=== PATIENT | female | born 1930 | race Caucasian/White ===

== ENCOUNTER 2017-01-26 13:04 | Inpatient (IN) | payer MEDICARE, MEDICAID ==
[~2017-01-26] VITALS: Ht 162.6 cm; Wt 85.7 kg
[~2017-01-26 13:04] MED LIST: ALEN70TA45 PO; ASPI81TA2 PO; CARB-93 PO; DONE5TAB34 PO; ESCI10TA PO; FLUT16SP BNOSTRILS; LOSA1TAB36 PO; LOSA50TA21 PO; MECL-102 PO; MELO-270 PO; MEMA5TAB PO; METF500T7 PO; OLOP2.5D EACHEYE; OMEP20CA10 PO; SAXA5TAB PO; SIMV20TA6 PO
[2017-01-26 13:27] LABS: BASOPHILS # (AUTO) 0.1 /CMM (0.0-0.2); BASOPHILS % (AUTO) 2.2 % (0.0-2.0); DIFF TOTAL % 100 %; EOSINOPHILS # (AUTO) 0.1 /CMM (0.0-0.7); EOSINOPHILS % (AUTO) 1.5 % (0.0-6.0); HEMATOCRIT 39 % (33-45); HEMOGLOBIN 13.1 g/dL (11.5-14.8); LYMPHOCYTES # (AUTO) 1.7 /CMM (0.8-4.8); LYMPHOCYTES % (AUTO) 28.8 % (20.0-44.0); MEAN CORPUSCULAR HEMOGLOBIN 27 PG (26.0-33.0); MEAN CORPUSCULAR HGB CONC 33 g/dl (31.0-36.0); MEAN CORPUSCULAR VOLUME 82 fL (82-100); MONOCYTES # (AUTO) 0.3 /CMM (0.1-1.30); NEUTROPHILS # (AUTO) 3.6 /CMM (1.8-8.9); NEUTROPHILS % (AUTO) 61.5 % (43.0-81.0); PLATELET COUNT (AUTO) 218 /CMM (150-450); WHITE BLOOD COUNT (AUTO) 5.8 K/uL (4.3-11.0)
[2017-01-26 13:38] LABS: CALCIUM, SERUM 8.9 mg/dL (8.5-10.1); CREATININE 1.8 mg/dL (0.6-1.3); POTASSIUM 4.1 mmol/L (3.5-5.1)
[2017-01-26 13:44] LABS: ALBUMIN 3.5 g/dL (3.4-5.0); BILIRUBIN,DIRECT 0.1 mg/dL (0.0-0.2); BILIRUBIN,TOTAL 0.4 mg/dL (0.2-1.0); INDIRECT BILIRUBIN 0.3 mg/dL (0.0-1.1); TOTAL PROTEIN, SERUM 6.5 g/dL (6.4-8.2)
[2017-01-26 13:47] LABS: INR 1.01 (0.87-1.13); PROTHROMBIN TIME 10.6 SECS (9.5-12.7)
[2017-01-26 16:00] VITALS: BP 143/86
[2017-01-26] MEDS ORDERED: ACETAMINOPHEN 325 MG TABLET PO PRN (16:30)
[2017-01-26] MEDS ORDERED: MECLIZINE HCL 25 MG TABLET PO PRN (16:30)
[2017-01-26] MEDS ORDERED: ZOLPIDEM TARTRATE 5 MG TABLET PO PRN (16:30)
[2017-01-26] MEDS ORDERED: MAGNESIUM HYDROXIDE 30 ML UDC PO PRN (16:30)
[2017-01-26] MEDS ORDERED: DEXTROSE 50%-WATER 50 ML DISP.SYRIN IV PRN (16:30)
[2017-01-26] MEDS ORDERED: ONDANSETRON HCL/PF 4 MG/2 ML VIAL IVP PRN (16:30)
[2017-01-26] MEDS ORDERED: HYDROCODONE/APAP 5/325MG 1 EACH TABLET PO PRN (16:30)
[2017-01-26] MEDS ORDERED: Z GUARD REMEDY 2 OZ OINT TP PRN (16:30)
[2017-01-26] MEDS ORDERED: MAG HYDROX/AL HYDROX/SIMETH 30 ML UDC PO PRN (16:30)
[2017-01-26] MEDS: FLUTICASONE PROPIONATE 16 GM BOTTLE NS SCH (17:00)
[2017-01-26] MEDS ORDERED: IV SET PRIMARY PUMP SET 1 EA INFUS.SET MC ONE (17:07)
[2017-01-26] MEDS: CARBIDOPA/LEVODOPA 25/100 MG 1 UDTAB PO SCH ×2 (17:19→21:28)
[2017-01-26] MEDS: MEMANTINE HCL 5 MG TABLET PO SCH (17:19)
[2017-01-26] MEDS: OLOPATADINE HCL 0.1% OPHTH BOTTLE EACHEYE SCH (17:19)
[2017-01-26] MEDS: BLOOD SUGAR DIAGNOSTIC 1 EACH STRIP VI SCH ×2 (17:19→21:29)
[2017-01-26] MEDS: IV NS 0.9% 1,000 ML IV PRN (17:20)
[2017-01-26 20:00] VITALS: BP 147/59
[2017-01-26 20:23] VITALS: BP 147/59
[2017-01-26 21:20] VITALS: BP 180/72
[2017-01-26] MEDS: SIMVASTATIN 20 MG TABLET PO SCH (21:28)
[2017-01-26] MEDS: LOSARTAN POTASSIUM 50 MG TABLET PO SCH (21:28)
[2017-01-26] MEDS: *INSULIN REGULAR(HUMULIN R)HUM 100 UNIT/ML VIAL SQ PRN (21:29)
[2017-01-26 23:00] VITALS: BP 146/70
[2017-01-26 23:55] VITALS: BP 147/66
[2017-01-27] VITALS (7 sets, daily range): BP systolic 126–169; BP diastolic 66–93
[2017-01-27] MEDS: BLOOD SUGAR DIAGNOSTIC 1 EACH STRIP VI SCH ×4 (06:31→21:04)
[2017-01-27] MEDS: INSULIN REGULAR, HUMAN 100 UNIT/ML 3 ML VIAL SQ PRN ×2 (06:32→17:12)
[2017-01-27 07:21] LABS: BASOPHILS % (AUTO) 0.3 % (0.0-2.0); DIFF TOTAL % 100 %; EOSINOPHILS # (AUTO) 0.1 /CMM (0.0-0.7); EOSINOPHILS % (AUTO) 1.4 % (0.0-6.0); HEMATOCRIT 37 % (33-45); HEMOGLOBIN 12.1 g/dL (11.5-14.8); LYMPHOCYTES # (AUTO) 1.5 /CMM (0.8-4.8); LYMPHOCYTES % (AUTO) 23.7 % (20.0-44.0); MEAN CORPUSCULAR HEMOGLOBIN 27 PG (26.0-33.0); MEAN CORPUSCULAR HGB CONC 33 g/dl (31.0-36.0); MEAN CORPUSCULAR VOLUME 82 fL (82-100); MONOCYTES # (AUTO) 0.6 /CMM (0.1-1.30); MONOCYTES % (AUTO) 9.2 % (2.0-12.0); NEUTROPHILS # (AUTO) 4.1 /CMM (1.8-8.9); NEUTROPHILS % (AUTO) 65.4 % (43.0-81.0); PLATELET COUNT (AUTO) 224 /CMM (150-450); WHITE BLOOD COUNT (AUTO) 6.3 K/uL (4.3-11.0)
[2017-01-27 07:54] LABS: CALCIUM, SERUM 8.8 mg/dL (8.5-10.1); CREATININE 1.5 mg/dL (0.6-1.3); PHOSPHORUS 2.9 mg/dL (2.5-4.9); POTASSIUM 3.9 mmol/L (3.5-5.1)
[2017-01-27] MEDS: ESCITALOPRAM OXALATE (10 MG) 10 MG TABLET PO SCH (08:27)
[2017-01-27] MEDS: ASPIRIN 81 MG TAB.CHEW PO SCH (08:27)
[2017-01-27] MEDS: DONEPEZIL 5 MG TABLET PO SCH (08:27)
[2017-01-27] MEDS: CARBIDOPA/LEVODOPA 25/100 MG 1 UDTAB PO SCH ×4 (08:27→21:04)
[2017-01-27] MEDS: MEMANTINE HCL 5 MG TABLET PO SCH ×2 (08:27→17:01)
[2017-01-27] MEDS: PANTOPRAZOLE 40 MG TABLET.DR PO SCH (08:27)
[2017-01-27] MEDS: MELOXICAM 7.5 MG TABLET PO SCH (08:27)
[2017-01-27] MEDS: FLUTICASONE PROPIONATE 16 GM BOTTLE NS SCH ×2 (08:28→17:00)
[2017-01-27] MEDS: OLOPATADINE HCL 0.1% OPHTH BOTTLE EACHEYE SCH ×2 (08:28→17:02)
[2017-01-27] MEDS ORDERED: Medication Not On Formulary EA (Omeprazole 20 MG) PO SCH (09:00)
[2017-01-27] MEDS ORDERED: SECONDARY IV SET 1 EA INFUS.SET MC ONE (09:52)
[2017-01-27] MEDS: Magnesium 1GM/D5W 100ML PREMIX 100 ML IV SCH ×2 (09:57→11:13)
[2017-01-27] MEDS: SIMVASTATIN 20 MG TABLET PO SCH (21:04)
[2017-01-27] MEDS: LOSARTAN POTASSIUM 50 MG TABLET PO SCH (21:05)
[2017-01-27 22:42] LABS: ADD UA MICROSCOPIC NO; KETONES,URINE NEGATIVE (NEGATIVE); LEUKOCYTE ESTERASE ,URINE NEGATIVE (NEGATIVE)
[2017-01-28] MEDS ORDERED: LORAZEPAM INJ 2 MG/ML VIAL ONE (00:17)
[2017-01-28] MEDS ORDERED: LORAZEPAM INJ 2 MG/ML VIAL IV ONE (00:30)
[2017-01-28 00:35] VITALS: BP 160/99
[2017-01-28] MEDS: BLOOD SUGAR DIAGNOSTIC 1 EACH STRIP VI SCH ×4 (06:07→21:32)
[2017-01-28] MEDS: IV NS 0.9% 1,000 ML IV PRN (06:16)
[2017-01-28 08:00] VITALS: BP 134/49
[2017-01-28 08:14] LABS: CALCIUM, SERUM 8.7 mg/dL (8.5-10.1); CREATININE 1.4 mg/dL (0.6-1.3); POTASSIUM 4.1 mmol/L (3.5-5.1)
[2017-01-28] MEDS: OLOPATADINE HCL 0.1% OPHTH BOTTLE EACHEYE SCH ×2 (08:29→17:03)
[2017-01-28] MEDS: MEMANTINE HCL 5 MG TABLET PO SCH ×2 (08:30→17:01)
[2017-01-28] MEDS: ESCITALOPRAM OXALATE (10 MG) 10 MG TABLET PO SCH (08:30)
[2017-01-28] MEDS: CARBIDOPA/LEVODOPA 25/100 MG 1 UDTAB PO SCH ×4 (08:30→21:33)
[2017-01-28] MEDS: FLUTICASONE PROPIONATE 16 GM BOTTLE NS SCH ×2 (08:30→17:03)
[2017-01-28] MEDS: MELOXICAM 7.5 MG TABLET PO SCH (08:30)
[2017-01-28] MEDS: PANTOPRAZOLE 40 MG TABLET.DR PO SCH (08:30)
[2017-01-28] MEDS: ASPIRIN 81 MG TAB.CHEW PO SCH (08:30)
[2017-01-28] MEDS: DONEPEZIL 5 MG TABLET PO SCH (08:30)
[2017-01-28] MEDS: *INSULIN REGULAR(HUMULIN R)HUM 100 UNIT/ML VIAL SQ PRN (12:43)
[2017-01-28] MEDS ORDERED: MELOXICAM 7.5 MG TABLET PO PRN (14:30)
[2017-01-28 16:00] VITALS: BP_SYST 148; BP_SYST 160; BP_DIAS 58; BP_DIAS 69
[2017-01-28 20:00] VITALS: BP 138/58
[2017-01-28] MEDS: SIMVASTATIN 20 MG TABLET PO SCH (21:33)
[2017-01-28] MEDS: LOSARTAN POTASSIUM 50 MG TABLET PO SCH (21:33)
[2017-01-29] MEDS: BLOOD SUGAR DIAGNOSTIC 1 EACH STRIP VI SCH ×2 (05:54→12:12)
[2017-01-29 07:51] LABS: BASOPHILS % (AUTO) 0.8 % (0.0-2.0); DIFF TOTAL % 100 %; EOSINOPHILS # (AUTO) 0.2 /CMM (0.0-0.7); HEMATOCRIT 37 % (33-45); LYMPHOCYTES # (AUTO) 1.5 /CMM (0.8-4.8); LYMPHOCYTES % (AUTO) 27.7 % (20.0-44.0); MEAN CORPUSCULAR HEMOGLOBIN 27 PG (26.0-33.0); MEAN CORPUSCULAR HGB CONC 33 g/dl (31.0-36.0); MEAN CORPUSCULAR VOLUME 82 fL (82-100); MONOCYTES # (AUTO) 0.5 /CMM (0.1-1.30); MONOCYTES % (AUTO) 9.5 % (2.0-12.0); NEUTROPHILS # (AUTO) 3.1 /CMM (1.8-8.9); PLATELET COUNT (AUTO) 210 /CMM (150-450); WHITE BLOOD COUNT (AUTO) 5.3 K/uL (4.3-11.0)
[2017-01-29 08:00] LABS: CALCIUM, SERUM 8.7 mg/dL (8.5-10.1); CREATININE 1.4 mg/dL (0.6-1.3); PHOSPHORUS 3.2 mg/dL (2.5-4.9); POTASSIUM 3.8 mmol/L (3.5-5.1)
[2017-01-29 08:20] VITALS: BP 156/63
[2017-01-29] MEDS: MEMANTINE HCL 5 MG TABLET PO SCH (08:39)
[2017-01-29] MEDS: ASPIRIN 81 MG TAB.CHEW PO SCH (08:39)
[2017-01-29] MEDS: ESCITALOPRAM OXALATE (10 MG) 10 MG TABLET PO SCH (08:40)
[2017-01-29] MEDS: PANTOPRAZOLE 40 MG TABLET.DR PO SCH (08:40)
[2017-01-29] MEDS: DONEPEZIL 5 MG TABLET PO SCH (08:40)
[2017-01-29] MEDS: CARBIDOPA/LEVODOPA 25/100 MG 1 UDTAB PO SCH ×2 (08:41→12:13)
[2017-01-29] MEDS: OLOPATADINE HCL 0.1% OPHTH BOTTLE EACHEYE SCH (08:41)
[2017-01-29] MEDS: FLUTICASONE PROPIONATE 16 GM BOTTLE NS SCH (08:42)
[2017-01-29] MEDS ORDERED: SECONDARY IV SET 1 EA INFUS.SET MC ONE (11:02)
[2017-01-29] MEDS: Magnesium 1GM/D5W 100ML PREMIX 100 ML IV SCH ×2 (11:05→12:13)
[2017-01-29] MEDS: IV NS 0.9% 1,000 ML IV PRN (11:05)
[2017-01-29 12:06] VITALS: BP 144/76
== END 2017-01-29 14:49 | disposition home health service (06) | DRG 73 ==
LOC: ER 13:06 → TELE 15:37 → MED 01-28 14:32
PROVIDERS: ADMIT Internal Medicine; ATTEND Internal Medicine
DX: G90.8 Other disorders of autonomic nervous system (principal); N17.0 Acute kidney failure with tubular necrosis; G93.41 Metabolic encephalopathy; I10 Essential (primary) hypertension; K21.9 Gastro-esophageal reflux disease without esophagitis; I25.10 Atherosclerotic heart disease of native coronary artery without angina pectoris; G20 Parkinson's disease; F02.80 Dementia in other diseases classified elsewhere, unspecified severity, without behavioral disturbance, psychotic disturbance, mood disturbance, and anxiety; E78.5 Hyperlipidemia, unspecified; E83.42 Hypomagnesemia; E86.9 Volume depletion, unspecified; I12.9 Hypertensive chronic kidney disease with stage 1 through stage 4 chronic kidney disease, or unspecified chronic kidney disease; M19.90 Unspecified osteoarthritis, unspecified site; M81.0 Age-related osteoporosis without current pathological fracture; N18.3 Chronic kidney disease, stage 3 (moderate); Z86.73 Personal history of transient ischemic attack (TIA), and cerebral infarction without residual deficits; F01.50 Vascular dementia, unspecified severity, without behavioral disturbance, psychotic disturbance, mood disturbance, and anxiety; E11.22 Type 2 diabetes mellitus with diabetic chronic kidney disease; W19.XXXA Unspecified fall, initial encounter; Y93.9 Activity, unspecified; Y92.002 Bathroom of unspecified non-institutional (private) residence as the place of occurrence of the external cause; Y99.9 Unspecified external cause status
CPT/HCPCS: 36415; 70450-TC; 71010-TC; 72125-TC; 73564-TC; 80048-TC; 80076-TC; 81000-TC; 82306; 82962-TC; 83735-TC; 84100-TC; 84443-TC; 84484-TC; 85025-TC; 85730-TC; 87081-TC; 97001-TC; 97003-TC; 97116-TC; 97530-TC; A4606; J1815; J2060; J3475; J7030; Z7610

== ENCOUNTER 2018-02-06 12:31 | Inpatient (IN) | payer MEDICARE, MEDICAID ==
[~2018-02-06] VITALS: Ht 157.5 cm; Wt 74.8 kg
[~2018-02-06 12:31] MED LIST changes: +ASPI-1169 PO; -ASPI81TA2 PO; +MELO-105 PO; -MELO-270 PO
[2018-02-06] MEDS ORDERED: IV NS 0.9% 1,000 ML BAG IV ONE (13:00)
[2018-02-06] MEDS ORDERED: ACETAMINOPHEN ES 500 MG TABLET PO ONE (13:00)
[2018-02-06 13:32] LABS: BASOPHILS # (AUTO) 0.8 /CMM (0.0-0.2); EOSINOPHILS % (AUTO) 0.2 % (0.0-6.0); HEMATOCRIT 32 % (33-45); HEMOGLOBIN 11.1 g/dL (11.5-14.8); LYMPHOCYTES # (AUTO) 0.7 /CMM (0.8-4.8); MEAN CORPUSCULAR HEMOGLOBIN 28 PG (26.0-33.0); MEAN CORPUSCULAR HGB CONC 35 g/dl (31.0-36.0); MEAN CORPUSCULAR VOLUME 80 fL (82-100); MONOCYTES # (AUTO) 0.7 /CMM (0.1-1.30); MONOCYTES % (AUTO) 5.7 % (2.0-12.0); NEUTROPHILS # (AUTO) 10.2 /CMM (1.8-8.9); NEUTROPHILS % (AUTO) 81.8 % (43.0-81.0); PLATELET COUNT (AUTO) 392 /CMM (150-450); RDW COEFFICIENT OF VARIATION 14.5 (11.5-15.0); RED BLOOD CELL COUNT(AUTO) 3.96 MIL/uL (4.0-5.2); WHITE BLOOD COUNT (AUTO) 12.4 K/uL (4.3-11.0)
[2018-02-06 13:33] LABS: BASOPHILS % (AUTO) 6.3 % (0.0-2.0)
[2018-02-06 13:39] LABS: CALCIUM, SERUM 8.8 mg/dL (8.5-10.1); CARBON DIOXIDE 23 mmol/L (21-32); CHLORIDE 103 mmol/L (98-107); CREATININE 2.1 mg/dL (0.6-1.3); GLUCOSE 154 mg/dL (74-106); POTASSIUM 3.2 mmol/L (3.5-5.1); SODIUM SERUM 138 mmol/L (136-145); UREA NITROGEN, BLOOD 61 mg/dL (7-18)
[2018-02-06 13:41] LABS: INR 0.96 (0.85-1.15)
[2018-02-06 13:45] LABS: ALANINE AMINOTRANSFERASE 25 U/L (12-78); ALBUMIN 2.2 g/dL (3.4-5.0); ALKALINE PHOSPHATASE 361 U/L (46-116); ASPARTATE AMINOTRANSFERASE 56 U/L (15-37); BILIRUBIN,DIRECT 0.5 mg/dL (0.0-0.2); BILIRUBIN,TOTAL 0.9 mg/dL (0.2-1.0)
[2018-02-06 13:46] LABS: TROPONIN I < 0.017 ng/mL (0.00-0.056)
[2018-02-06] MEDS ORDERED: ASPI-1152 PO (13:55)
[2018-02-06] MEDS ORDERED: CARB1TAB19 PO (13:55)
[2018-02-06] MEDS ORDERED: LEVO500T90 (13:55)
[2018-02-06] MEDS ORDERED: ACETAMINOPHEN ES 500 MG TABLET ONE (13:56)
[2018-02-06] MEDS ORDERED: NEUPRO TD (13:57)
[2018-02-06 14:40] LABS: BAND % (MANUAL) 3 % (0.0-5.0); EOSINOPHILS % (MANUAL) 1 % (0-4); MONOCYTES % (MANUAL) 5 % (0-11.0); NEUTROPHILS % (MANUAL) 82 (42-76)
[2018-02-06 14:41] LABS: LYMPHOCYTES % (MANUAL) 9 % (16-48)
[2018-02-06 14:57] LABS: MAGNESIUM 2.1 mg/dL (1.8-2.4); PHOSPHORUS 3.3 mg/dL (2.5-4.9)
[2018-02-06] MEDS ORDERED: AZITHROMYCIN 500 MG in IV D5W 250 ML IV ONE (15:00)
[2018-02-06] MEDS ORDERED: CEFTRIAXONE 1 G in IV D5W 50 ML IV ONE (15:00)
[2018-02-06] MEDS ORDERED: Magnesium 1GM/D5W 100ML PREMIX 100 ML IV SCH (15:00)
[2018-02-06] MEDS: POTASSIUM CL. PREMIX PERIPHER. 50 ML IV SCH ×2 (15:00→16:00)
[2018-02-06 15:45] LABS: APPEARANCE,URINE Clear (CLEAR); BILIRUBIN,URINE SMALL (NEGATIVE); BLOOD, URINE Negative Ery/uL (NEGATIVE); COLOR,URINE Yellow (YELLOW); KETONES,URINE Trace (NEGATIVE); LEUKOCYTE ESTERASE ,URINE Negative (NEGATIVE); NITRITE, URINE Negative (NEGATIVE); PROTEIN,URINE Trace mg/dl (NEGATIVE); UGLUCOSE Negative (NEGATIVE)
[2018-02-06 16:00] VITALS: BP 144/71
[2018-02-06] MEDS ORDERED: HYDROCODONE/APAP 5/325MG 1 EACH TABLET PO PRN (17:30)
[2018-02-06] MEDS ORDERED: ONDANSETRON HCL/PF 4 MG/2 ML VIAL IVP PRN (17:30)
[2018-02-06] MEDS ORDERED: ACETAMINOPHEN 325 MG TABLET PO PRN (17:30)
[2018-02-06] MEDS ORDERED: MAG HYDROX/AL HYDROX/SIMETH 30 ML UDC PO PRN (17:30)
[2018-02-06] MEDS ORDERED: Z GUARD REMEDY 2 OZ OINT TP PRN (17:30)
[2018-02-06] MEDS ORDERED: MAGNESIUM HYDROXIDE 30 ML UDC PO PRN (17:30)
[2018-02-06] MEDS: IV NS 0.9% 1,000 ML IV PRN (17:43)
[2018-02-06 20:00] VITALS: BP 142/65
[2018-02-06 21:43] LABS: BACTERIA,URINE Few /HPF (None Seen); RBC,URINE 0-2 /HPF (0-2); SQUAMOUS EPITHELIAL CELL,UR Rare /HPF (None Seen); WBC,URINE 0-2 /HPF (0-3)
[2018-02-06 22:00] VITALS: BP 142/65
[2018-02-06] MEDS ORDERED: LOSARTAN POTASSIUM 50 MG TABLET PO SCH (22:00)
[2018-02-06] MEDS: SIMVASTATIN 20 MG TABLET PO SCH (22:50)
[2018-02-07] VITALS: BP 122/71
[2018-02-07 04:00] VITALS: BP_SYST 125; BP_DIAS 51; BP_DIAS 72
[2018-02-07] MEDS: PANTOPRAZOLE 40 MG TABLET.DR PO SCH (07:30)
[2018-02-07 08:00] VITALS: BP 120/59
[2018-02-07] MEDS: ASPIRIN EC 81 MG TABLET.DR PO SCH (08:30)
[2018-02-07] MEDS: ESCITALOPRAM OXALATE (10 MG) 10 MG TABLET PO SCH (08:30)
[2018-02-07] MEDS: CARBIDOPA/LEVODOPA 10/100 MG 1 UDTAB PO SCH ×3 (08:32→17:20)
[2018-02-07] MEDS: DONEPEZIL 5 MG TABLET PO SCH (08:32)
[2018-02-07] MEDS: MEMANTINE HCL 5 MG TABLET PO SCH ×2 (08:32→17:19)
[2018-02-07] MEDS: FLUTICASONE PROPIONATE 16 GM BOTTLE NS SCH ×2 (08:40→17:20)
[2018-02-07] MEDS ORDERED: LOSARTAN/HCTZ 50-12.5MG/ 1 EA TABLET PO SCH (09:00)
[2018-02-07] MEDS ORDERED: MELOXICAM 7.5 MG TABLET PO SCH (09:00)
[2018-02-07] MEDS ORDERED: ACETAMINOPHEN 650 MG/20.3 ML UDC PO PRN (13:00)
[2018-02-07] MEDS ORDERED: hydrALAZINE HCL 25 MG TABLET PO PRN (13:00)
[2018-02-07] MEDS: IV NS 0.9% 1,000 ML IV PRN (13:29)
[2018-02-07] MEDS: CEFTRIAXONE 1 G in IV NS 0.9% 50 ML IV SCH (13:29)
[2018-02-07] MEDS: AZITHROMYCIN 500 MG in IV D5W 250 ML IV SCH (14:42)
[2018-02-07 15:20] LABS: CALCIUM, SERUM 8.3 mg/dL (8.5-10.1); CARBON DIOXIDE 21 mmol/L (21-32); CHLORIDE 107 mmol/L (98-107); CREATININE 1.6 mg/dL (0.6-1.3); GLUCOSE 130 mg/dL (74-106); MAGNESIUM 1.9 mg/dL (1.8-2.4); PHOSPHORUS 3.1 mg/dL (2.5-4.9); POTASSIUM 3.9 mmol/L (3.5-5.1); SODIUM SERUM 141 mmol/L (136-145); UREA NITROGEN, BLOOD 43 mg/dL (7-18)
[2018-02-07] MEDS: OLOPATADINE HCL 0.1% OPHTH BOTTLE EACHEYE SCH ×2 (15:42→22:51)
[2018-02-07 16:00] VITALS: BP 130/56
[2018-02-07 17:00] LABS: BASOPHILS % (AUTO) 0.2 % (0.0-2.0); HEMATOCRIT 28 % (33-45); HEMOGLOBIN 9.5 g/dL (11.5-14.8); LYMPHOCYTES # (AUTO) 0.6 /CMM (0.8-4.8); MEAN CORPUSCULAR HEMOGLOBIN 28 PG (26.0-33.0); MEAN CORPUSCULAR HGB CONC 35 g/dl (31.0-36.0); MEAN CORPUSCULAR VOLUME 82 fL (82-100); MONOCYTES # (AUTO) 0.5 /CMM (0.1-1.30); NEUTROPHILS # (AUTO) 11.6 /CMM (1.8-8.9); NEUTROPHILS % (AUTO) 90.8 % (43.0-81.0); PLATELET COUNT (AUTO) 403 /CMM (150-450); RDW COEFFICIENT OF VARIATION 16.3 (11.5-15.0); RED BLOOD CELL COUNT(AUTO) 3.37 MIL/uL (4.0-5.2); WHITE BLOOD COUNT (AUTO) 12.8 K/uL (4.3-11.0)
[2018-02-07] MEDS: LACTOBACILLUS RHAMNOSUS GG 1 EACH CAP.SPRINK PO SCH (18:51)
[2018-02-07 20:00] VITALS: BP 143/70
[2018-02-07] MEDS: SIMVASTATIN 20 MG TABLET PO SCH (22:51)
[2018-02-08 08:00] VITALS: BP 135/61
[2018-02-08] MEDS: PANTOPRAZOLE 40 MG TABLET.DR PO SCH (09:02)
[2018-02-08] MEDS: MEMANTINE HCL 5 MG TABLET PO SCH ×2 (09:02→16:30)
[2018-02-08] MEDS: DONEPEZIL 5 MG TABLET PO SCH (09:02)
[2018-02-08] MEDS: CARBIDOPA/LEVODOPA 10/100 MG 1 UDTAB PO SCH ×3 (09:02→16:30)
[2018-02-08] MEDS: ESCITALOPRAM OXALATE (10 MG) 10 MG TABLET PO SCH (09:02)
[2018-02-08] MEDS: ASPIRIN EC 81 MG TABLET.DR PO SCH (09:03)
[2018-02-08] MEDS: OLOPATADINE HCL 0.1% OPHTH BOTTLE EACHEYE SCH ×2 (09:03→23:06)
[2018-02-08] MEDS: FLUTICASONE PROPIONATE 16 GM BOTTLE NS SCH ×2 (09:03→16:30)
[2018-02-08] MEDS: BOOST PLUS FOOD-VANILLA 237 ML BOX PO SCH ×3 (09:05→16:30)
[2018-02-08] MEDS: LACTOBACILLUS RHAMNOSUS GG 1 EACH CAP.SPRINK PO SCH ×2 (09:06→16:30)
[2018-02-08] MEDS: CEFTRIAXONE 1 G in IV NS 0.9% 50 ML IV SCH (14:42)
[2018-02-08] MEDS: AZITHROMYCIN 500 MG in IV D5W 250 ML IV SCH (15:19)
[2018-02-08] MEDS: IV NS 0.9% 1,000 ML IV PRN (15:43)
[2018-02-08 16:00] VITALS: BP 131/63
[2018-02-08 20:00] VITALS: BP 109/55
[2018-02-08 20:03] VITALS: BP 109/55
[2018-02-08] MEDS: SIMVASTATIN 20 MG TABLET PO SCH (23:06)
[2018-02-09 08:00] VITALS: BP 112/55
[2018-02-09] MEDS: PANTOPRAZOLE 40 MG TABLET.DR PO SCH (08:28)
[2018-02-09] MEDS: BOOST PLUS FOOD-VANILLA 237 ML BOX PO SCH ×3 (08:30→16:19)
[2018-02-09] MEDS: ASPIRIN EC 81 MG TABLET.DR PO SCH (08:31)
[2018-02-09] MEDS: MEMANTINE HCL 5 MG TABLET PO SCH ×2 (08:31→16:16)
[2018-02-09] MEDS: CARBIDOPA/LEVODOPA 10/100 MG 1 UDTAB PO SCH ×3 (08:31→16:17)
[2018-02-09] MEDS: FLUTICASONE PROPIONATE 16 GM BOTTLE NS SCH ×2 (08:31→16:34)
[2018-02-09] MEDS: DONEPEZIL 5 MG TABLET PO SCH (08:31)
[2018-02-09] MEDS: ESCITALOPRAM OXALATE (10 MG) 10 MG TABLET PO SCH (08:33)
[2018-02-09] MEDS: LACTOBACILLUS RHAMNOSUS GG 1 EACH CAP.SPRINK PO SCH ×2 (08:46→16:17)
[2018-02-09] MEDS: OLOPATADINE HCL 0.1% OPHTH BOTTLE EACHEYE SCH ×2 (08:47→22:19)
[2018-02-09 10:00] VITALS: BP 112/55
[2018-02-09] MEDS: CEFTRIAXONE 1 G in IV NS 0.9% 50 ML IV SCH (14:09)
[2018-02-09 15:08] LABS: BASOPHILS % (AUTO) 0.4 % (0.0-2.0); EOSINOPHILS % (AUTO) 0.3 % (0.0-6.0); HEMATOCRIT 27 % (33-45); HEMOGLOBIN 9.2 g/dL (11.5-14.8); MEAN CORPUSCULAR HEMOGLOBIN 28 PG (26.0-33.0); MEAN CORPUSCULAR HGB CONC 34 g/dl (31.0-36.0); MEAN CORPUSCULAR VOLUME 82 fL (82-100); MONOCYTES # (AUTO) 0.8 /CMM (0.1-1.30); MONOCYTES % (AUTO) 7.6 % (2.0-12.0); NEUTROPHILS # (AUTO) 8.8 /CMM (1.8-8.9); NEUTROPHILS % (AUTO) 82.7 % (43.0-81.0); PLATELET COUNT (AUTO) 364 /CMM (150-450); RDW COEFFICIENT OF VARIATION 15.9 (11.5-15.0); RED BLOOD CELL COUNT(AUTO) 3.32 MIL/uL (4.0-5.2); WHITE BLOOD COUNT (AUTO) 10.6 K/uL (4.3-11.0)
[2018-02-09] MEDS: AZITHROMYCIN 500 MG in IV D5W 250 ML IV SCH (15:13)
[2018-02-09 16:00] VITALS: BP 105/53
[2018-02-09 20:00] VITALS: BP 112/51
[2018-02-09 20:26] VITALS: BP 112/51
[2018-02-09] MEDS: SIMVASTATIN 20 MG TABLET PO SCH (22:19)
[2018-02-10 08:00] VITALS: BP 115/43
[2018-02-10] MEDS: PANTOPRAZOLE 40 MG TABLET.DR PO SCH (09:00)
[2018-02-10] MEDS: BOOST PLUS FOOD-VANILLA 237 ML BOX PO SCH ×3 (10:13→16:53)
[2018-02-10] MEDS: DONEPEZIL 5 MG TABLET PO SCH (10:18)
[2018-02-10] MEDS: MEMANTINE HCL 5 MG TABLET PO SCH ×2 (10:18→16:54)
[2018-02-10] MEDS: ASPIRIN EC 81 MG TABLET.DR PO SCH (10:18)
[2018-02-10] MEDS: CARBIDOPA/LEVODOPA 10/100 MG 1 UDTAB PO SCH ×3 (10:18→16:54)
[2018-02-10] MEDS: LACTOBACILLUS RHAMNOSUS GG 1 EACH CAP.SPRINK PO SCH ×2 (10:18→16:53)
[2018-02-10] MEDS: ESCITALOPRAM OXALATE (10 MG) 10 MG TABLET PO SCH (10:18)
[2018-02-10] MEDS: OLOPATADINE HCL 0.1% OPHTH BOTTLE EACHEYE SCH ×2 (10:20→21:00)
[2018-02-10] MEDS: FLUTICASONE PROPIONATE 16 GM BOTTLE NS SCH ×2 (10:29→16:55)
[2018-02-10] MEDS: CEFTRIAXONE 1 G in IV NS 0.9% 50 ML IV SCH (13:09)
[2018-02-10] MEDS: AZITHROMYCIN 250 MG TABLET PO SCH (15:27)
[2018-02-10 16:00] VITALS: BP 120/55
[2018-02-10] MEDS: IV NS 0.9% 1,000 ML IV PRN (19:07)
[2018-02-10] MEDS: SIMVASTATIN 20 MG TABLET PO SCH (22:00)
[2018-02-11] MEDS: PANTOPRAZOLE 40 MG TABLET.DR PO SCH (07:30)
[2018-02-11] MEDS: BOOST PLUS FOOD-VANILLA 237 ML BOX PO SCH ×3 (08:00→16:40)
[2018-02-11 09:06] VITALS: BP 134/54
[2018-02-11] MEDS: FLUTICASONE PROPIONATE 16 GM BOTTLE NS SCH ×2 (09:17→16:48)
[2018-02-11] MEDS: OLOPATADINE HCL 0.1% OPHTH BOTTLE EACHEYE SCH ×2 (09:19→20:48)
[2018-02-11] MEDS: ESCITALOPRAM OXALATE (10 MG) 10 MG TABLET PO SCH (10:24)
[2018-02-11] MEDS: ASPIRIN EC 81 MG TABLET.DR PO SCH (10:24)
[2018-02-11] MEDS: DONEPEZIL 5 MG TABLET PO SCH (10:26)
[2018-02-11] MEDS: MEMANTINE HCL 5 MG TABLET PO SCH ×2 (10:26→16:40)
[2018-02-11] MEDS: CARBIDOPA/LEVODOPA 10/100 MG 1 UDTAB PO SCH ×3 (10:26→16:40)
[2018-02-11] MEDS: LACTOBACILLUS RHAMNOSUS GG 1 EACH CAP.SPRINK PO SCH ×2 (10:33→16:40)
[2018-02-11] MEDS: AZITHROMYCIN 250 MG TABLET PO SCH (15:42)
[2018-02-11] MEDS: CEFTRIAXONE 1 G in IV NS 0.9% 50 ML IV SCH (15:44)
[2018-02-11 16:00] VITALS: BP 129/54
[2018-02-11] MEDS: SIMVASTATIN 20 MG TABLET PO SCH (21:48)
[2018-02-12] MEDS ORDERED: ALENDRONATE 70 MG TABLET PO SCH (07:30)
[2018-02-12 08:00] VITALS: BP 150/61
[2018-02-12] MEDS: OLOPATADINE HCL 0.1% OPHTH BOTTLE EACHEYE SCH (09:00)
[2018-02-12] MEDS: FLUTICASONE PROPIONATE 16 GM BOTTLE NS SCH ×2 (09:00→17:07)
[2018-02-12] MEDS: PANTOPRAZOLE 40 MG TABLET.DR PO SCH (09:03)
[2018-02-12] MEDS: BOOST PLUS FOOD-VANILLA 237 ML BOX PO SCH ×3 (09:04→17:00)
[2018-02-12] MEDS: ESCITALOPRAM OXALATE (10 MG) 10 MG TABLET PO SCH (10:28)
[2018-02-12] MEDS: MEMANTINE HCL 5 MG TABLET PO SCH ×2 (10:28→17:04)
[2018-02-12] MEDS: CARBIDOPA/LEVODOPA 10/100 MG 1 UDTAB PO SCH ×3 (10:28→17:04)
[2018-02-12] MEDS: ASPIRIN EC 81 MG TABLET.DR PO SCH (10:28)
[2018-02-12] MEDS: LACTOBACILLUS RHAMNOSUS GG 1 EACH CAP.SPRINK PO SCH ×2 (10:28→17:04)
[2018-02-12] MEDS: DONEPEZIL 5 MG TABLET PO SCH (10:28)
[2018-02-12] MEDS ORDERED: IV NS 0.9% 1,000 ML IV PRN (11:17)
[2018-02-12] MEDS ORDERED: AZIT250T PO (13:29)
[2018-02-12] MEDS: CEFTRIAXONE 1 G in IV NS 0.9% 50 ML IV SCH (14:00)
[2018-02-12] MEDS: AZITHROMYCIN 250 MG TABLET PO SCH (14:58)
[2018-02-12 16:00] VITALS: BP 126/62
== END 2018-02-12 17:35 | disposition home or self-care (01) | DRG 871 ==
LOC: ER 12:33 → TELE 15:32 → MED 02-07 10:39
PROVIDERS: ADMIT Internal Medicine; ATTEND Internal Medicine
DX: A41.9 Sepsis, unspecified organism (principal); J15.9 Unspecified bacterial pneumonia; J96.91 Respiratory failure, unspecified with hypoxia; E43 Unspecified severe protein-calorie malnutrition; N17.0 Acute kidney failure with tubular necrosis; G92 Toxic encephalopathy; E11.22 Type 2 diabetes mellitus with diabetic chronic kidney disease; G20 Parkinson's disease; E88.09 Other disorders of plasma-protein metabolism, not elsewhere classified; D64.9 Anemia, unspecified; F03.90 Unspecified dementia, unspecified severity, without behavioral disturbance, psychotic disturbance, mood disturbance, and anxiety; E78.5 Hyperlipidemia, unspecified; E87.6 Hypokalemia; F32.9 Major depressive disorder, single episode, unspecified; H40.9 Unspecified glaucoma; I12.9 Hypertensive chronic kidney disease with stage 1 through stage 4 chronic kidney disease, or unspecified chronic kidney disease; I25.10 Atherosclerotic heart disease of native coronary artery without angina pectoris; K21.9 Gastro-esophageal reflux disease without esophagitis; N18.9 Chronic kidney disease, unspecified; Z86.73 Personal history of transient ischemic attack (TIA), and cerebral infarction without residual deficits; Z87.01 Personal history of pneumonia (recurrent); M62.50 Muscle wasting and atrophy, not elsewhere classified, unspecified site; Z68.30 Body mass index [BMI] 30.0-30.9, adult
CPT/HCPCS: 36415; 70450-TC; 71045-TC; 80048-TC; 80076-TC; 81000-TC; 83605-TC; 83735-TC; 84100-TC; 84484-TC; 85025-TC; 85730-TC; 87040-TC; 87081-TC; 87086-TC; 87400; 97110-TC; 97116-TC; 97530-TC; A4216; A4606; J0456; J0696; J3480; J7030; J7060; Z7610